=== PATIENT | male | born 2000 | race African-American/Black ===

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

== ENCOUNTER → 2020-01-11 | Outpatient (CLI) | payer BC, OTHER | LOC: COL.RAD 14:00 | DX: I51.7 Cardiomegaly (principal); Z86.19 Personal history of other infectious and parasitic diseases | CPT/HCPCS: Q9967 ==

== ENCOUNTER → 2020-02-24 | Outpatient (CLI) | payer BC, OTHER | LOC: COL.RAD 14:14 | DX: M84.359A Stress fracture, hip, unspecified, initial encounter for fracture (principal) ==

== ENCOUNTER → 2020-10-14 | Outpatient (CLI) | payer BC, OTHER | LOC: COL.RAD 10-13 14:00 | DX: M25.552 Pain in left hip (principal) | CPT/HCPCS: J3301 ==